=== PATIENT | male | born 1955 | race Caucasian/White ===

== ENCOUNTER → 2023-06-22 | Outpatient (CLI) | payer MEDICARE ==
--- NOTE | 2023-06-22 09:18 | MR ---
EXAMINATION TYPE: MR Prostate wo/w con DATE OF EXAM: 06/22/2023 6:58 AM COMPARISON: None. CLINICAL INDICATION:Male, 67 years old with history of R97.20 ELEVATED PSA; Enlarges prostate, elevat ed PSA TECHNIQUE: Multi-planar, multi-sequence imaging of the pelvis is performed prior to and following the uncomplicated administration of bolus intravenous gadolinium. CONTRAST: 12 [facility] Interpretive Criteria: PI-RADS v2.1 SERUM PSA: 13.7 on 05/19/2023. 13.3 on unknown. SURGICAL PATHOLOGY: No data available. Biopsy reportedly by patient, unknown location or date FINDINGS: Prostatic dimensions: 6.4 x 7.6 x 5.0 cm. Ellipsoid Volume:127.34 (PSA density=0.11 ng/mL/mL) CENTRAL GLAND (Central and Transition Zones/CZ+TZ): Multiple bilateral, heterogenous appearing hypertrophic stromal nodules, without suspicious lesion. M edian lobe hypertrophy with protrusion into the base of the bladder. (PI-RADS 2) PERIPHERAL ZONE (PZ): Bilateral linear, indistinct wedgelike areas of low ADC, and low T2 signal, No evidence of masslike a bnormality, or localized perfusional hypervascularity, to further suggest a focus of clinically signi ficant prostate cancer. (PI-RADS 2) SEMINAL VESICLES (SV): Symmetric and unremarkable. PERIPROSTATIC TISSUES: Unremarkable. LYMPH NODES: No enlarged pelvic lymph node. REMAINING PELVIS: Bladder wall is within normal limits given distention. No abnormal free or organized intrapelvic fluid collection. No pathologic bowel dilation or mural thickening. Bilateral fat containing inguinal hernias. OSSEOUS STRUCTURES: No suspicious osseous abnormality. IMPRESSION: 1. No specific features for high-risk prostate cancer. Maximum PI-RADS score: 2. 2. Substantial BPH, estimated gland volume 127.34 mL.
== END | disposition home or self-care (01) ==
LOC: RADMRIMAIN 06:02
PROVIDERS: ATTEND Urology
DX: N40.0 Benign prostatic hyperplasia without lower urinary tract symptoms (principal); R97.20 Elevated prostate specific antigen [PSA]
CPT/HCPCS: 72197; A9585